=== PATIENT | male | born 1985 | race Two or more races ===

== ENCOUNTER 2017-03-22 01:56 | Emergency (ER) | payer MEDICAID ==
--- NOTE | 2017-03-22 02:21 | ED Physician Chart ---
Chief Complaint/HPI - Patient Information Date Seen:: 03/22/17 Time Seen:: 02:15 Chief Complaint:: toothache History of Present Illness:: this is a 31 yr male with a toothache that started several hours ago. this is a recurrent problem for which he has been here before. he states that he is going to the dentist later on today. he denies all other medical problems. Allergies:: Allergies Allergy/AdvReac Type Severity Reaction Status Date / Time No Known Allergies Allergy Verified 03/22/17 02:04 Vitals:: Vital Signs - 8 hr 03/22/17 02:00 Temp 98.2 F HR 73 RR 20 BP 137/75 O2 Sat % 99 Historian:: Patient Review:: Nurse's Note Reviewed, Old Chart Reviewed Review of Systems - Review of Systems General/Constitutional: No fever, No chills, No weight loss, No weakness, No diaphoresis, No edema, No loss of appetite Skin: No skin lesions, No rash, No bruising Head: No headache, No light-headedness Eyes: No loss of vision, No pain, No diplopia ENT: No earache, No nasal drainage, No sore throat, No tinnitus, Other ( toothache) Neck: No neck pain, No swelling, No thyromegaly, No stiffness, No mass noted Cardio Vascular: No chest pain, No palpitations, No PND, No orthopnea, No edema Pulmonary: No SOB, No cough, No sputum, No wheezing GI: No nausea, No vomiting, No diarrhea, No pain, No melena, No hematochezia, No constipation, No hematemesis G/U: No dysuria, No frequency, No hematuria Musculoskeletal: No bone or joint pain, No back pain, No muscle pain Endocrine: No polyuria, No polydipsia Psychiatric: No prior psych history, No depression, No anxiety, No suicidal ideation Hematopoietic: No bruising, No lymphadenopathy Allergic/Immuno: No urticaria, No angioedema Neurological: No syncope, No focal symptoms, No weakness, No paresthesia, No headache, No seizure, No dizziness, No confusion, No vertigo Past Medical History - Past Medical History Obtainable: Yes Past Medical History: No significant medical hx Family History: None Social History: Smoker, Alcohol, Illicit Drug Use, Lives With Parents, Employed Surgical History: None Psychiatricy History: None Medication: Reviewed Family Medical History - Family Member Mother History Unknown: Yes Physical Exam - Physical Examination General/Constitutional: Awake, Well-developed, well-nourished, Alert, No distress, GCS 15, Non-toxic appearing, Ambulatory Head: Atraumatic Eyes: Lids, conjuctiva normal, PERRL, EOMI Skin: Nl inspection, No rash, No skin lesions, No ecchymosis, Well hydrated, No lymphadenopathy ENMT: External ears, nose nl, Nasal exam nl, Lips, teeth, gums nl (left upper molar area tenderness and swollen gums.) Neck: Nontender, Full ROM w/o pain, No JVD, No nuchal rigidity, No bruit, No mass, No stridor Respiratory: Nl effort/Exclusion, Clear to Auscultation, No Wheeze/Rhonchi/Rales Cardio Vascular: RRR, No murmur, gallop, rubs, NL S1 S2 GI: No tenderness/rebounding/guarding, No organomegaly, No hernia, Normal BS's, Nondistended, No mass/bruits, No McBurney tenderness : No CVA tenderness Extremities: No tenderness or effusion, Full ROM, normal strength in all extremities, No edema, Normal digits & nails Neuro/Psych: Alert/oriented, DTR's symmetric, Normal sensory exam, Normal motor strength, Judgement/insight normal, Mood normal, Normal gait, No focal deficits Misc: normal gait, Normal back, No paraspinal tenderness Assessment - Assessment General Assessment: toothache ED Septic Shock - . Is Septic Shock (SBP<90, OR Lactate>4 mmol\L) present?: No - <6hrs of presentation: Vital Signs: Vital Signs - 8 hr 03/22/17 02:00 Temp 98.2 F HR 73 RR 20 BP 137/75 O2 Sat % 99 Reassessment (Disposition) - Reassessment Reassessment Condition:: Unchanged - Diagnosis Diagnosis:: toothache - Aftercare/Follow up Instructions Aftercare/Follow-Up Instructions:: Counseled pt regarding lab results/diagnosis & need follow up, Refer to Discharge Instructions, Counseled pt & family regarding lab results/diagnosis & need follow up - Patient Disposition Discharge/Transfer:: Home Condition at Disposition:: Unchanged ED Discharge Plan - Patient Disposition Admit/Discharge/Transfer: PT DISCHARGED HOME Condition at Disposition: Guarded
== END 2017-03-22 02:30 | disposition home or self-care (01) ==
LOC: ER 01:56
DX: K08.89 Other specified disorders of teeth and supporting structures (principal); F17.200 Nicotine dependence, unspecified, uncomplicated
CPT/HCPCS: 99283; 96372; J1885; Z7502

== ENCOUNTER 2017-10-16 16:22 | Emergency (ER) | payer MEDICAID ==
--- NOTE | 2017-10-16 17:01 | ED Physician Chart ---
ED Chief Complaint/HPI - Patient Information Date Seen:: 10/16/17 Time Seen:: 16:52 Chief Complaint:: Right upper dental pain History of Present Illness:: 32 yo male had broken teeth of bilateral upper premolar simultaneously 6 months ago. The left upper premolar was extracted right away. Patient had relied on right side to chew most of time, resulting chronic pain. He had multiple episodes of gum abscess. During past 4 days, right upper premolar became extremely painful, constant, 10/10. No fever or chills. Allergies:: Allergies Allergy/AdvReac Type Severity Reaction Status Date / Time No Known Allergies Allergy Verified 03/22/17 02:04 Vitals:: Vital Signs - 8 hr 10/16/17 16:35 Temp 97.6 F HR 77 RR 16 BP 138/84 O2 Sat % 99 ED Review of Systems - Review of Systems General/Constitutional: No fever, No chills Skin: No bruising Head: No headache Eyes: No pain ENT: No earache, Other (teeth ache) Neck: No neck pain Cardio Vascular: No chest pain Pulmonary: No SOB GI: No nausea, No vomiting Musculoskeletal: No bone or joint pain ED Past Medical History - Past Medical History Past Medical History: No significant medical hx Social History: Non Smoker, Alcohol, Illicit Drug Use (marijuana) Surgical History: other (left tibia fracture ORIF) Family Medical History - Family Member Mother History Unknown: Yes ED Physical Exam - Physical Examination General/Constitutional: Awake, Alert Head: Atraumatic Eyes: PERRL Skin: No skin lesions Other ENMT comments:: right upper premolar (#4) broken with dark central caries and tenderness Neck: No nuchal rigidity Respiratory: No Wheeze/Rhonchi/Rales Cardio Vascular: RRR, No murmur, gallop, rubs, NL S1 S2 GI: No tenderness/rebounding/guarding Extremities: normal strength in all extremities Neuro/Psych: No focal deficits ED Assessment - Assessment General Assessment: Right upper premolar #4 dental caries with pain Assessment/Comments:: Toradol 30mg IM x 1 Clindamycin 600mg IM x 1 D/c home Clindamycin 300mg PO q8h x 10days F/u dentist within 3 days ED Septic Shock - . Is Septic Shock (SBP<90, OR Lactate>4 mmol\L) present?: No - <6hrs of presentation: Vital Signs: Vital Signs - 8 hr 10/16/17 16:35 Temp 97.6 F HR 77 RR 16 BP 138/84 O2 Sat % 99 ED Reassessment (Disposition) - Reassessment Reassessment Condition:: Improved - Patient Disposition Discharge/Transfer:: Home ED Discharge Plan - Patient Disposition Prescriptions: Clindamycin HCl [Cleocin*] 300 mg PO Q8H #60 cap Instructions: Dental Pain
[2017-10-16] MEDS ORDERED: Clindamycin 150 mg/mL 4mL Vial IM STA (17:14)
[2017-10-16] MEDS ORDERED: Clindamycin 150 mg/mL 4mL Vial ONE (17:19)
== END 2017-10-16 17:45 | disposition home or self-care (01) ==
LOC: ER 16:22
DX: K02.9 Dental caries, unspecified (principal)
CPT/HCPCS: 99284; 96372; J1885; X5958; Z7502